=== PATIENT | male | born 1940 ===

== ENCOUNTER → 2021-06-10 | Outpatient (CLI) | payer SELFPAY | END | disposition home or self-care (01) | LOC: XYW 15:38 | PROVIDERS: ATTEND Emergency Medicine | DX: S82.51XA Displaced fracture of medial malleolus of right tibia, initial encounter for closed fracture (principal); S82.61XA Displaced fracture of lateral malleolus of right fibula, initial encounter for closed fracture; S82.141A Displaced bicondylar fracture of right tibia, initial encounter for closed fracture; M17.11 Unilateral primary osteoarthritis, right knee; M25.561 Pain in right knee; M25.571 Pain in right ankle and joints of right foot; S82.891A Other fracture of right lower leg, initial encounter for closed fracture; X58.XXXA Exposure to other specified factors, initial encounter; Y93.89 Activity, other specified; Y92.89 Other specified places as the place of occurrence of the external cause; Y99.8 Other external cause status | CPT/HCPCS: 73700 ==